=== PATIENT | male | born 1955 | race American Indian/Alaskan Native ===

== ENCOUNTER 2019-02-19 11:48 | Emergency (ER) | payer MEDICAID ==
[2019-02-19 13:20] VITALS: BP 129/83
--- NOTE | 2019-02-19 14:38 | Emergency Department Report ---
Blank Doc - Documentation Documentation: 63-year-old male that presents with URI symptoms/ This initial assessment/diagnostic orders/clinical plan/treatment(s) is/are subject to change based on patient's health status, clinical progression and re- assessment by fellow clinical providers in the ED. Further treatment and workup at subsequent clinical providers discretion. Patient/guardians urged not to elope from the ED as their condition may be serious if not clinically assessed and managed. Initial orders include: 1- Patient sent to [facility] for further evaluation and treatment 2- cxr
--- NOTE | 2019-02-19 15:20 | XRay Report ---
CHEST 2 VIEWS INDICATION: cough. COMPARISON: None. FINDINGS: Support devices: None. Heart: Within normal limits. Lungs/Pleura: No acute air space or interstitial disease. No significant pleural effusion. IMPRESSION: No acute findings. Signer Name: Ayo Kirby MD Signed: 02/19/2019 3:15 PM Workstation Name: [id number]
== END 2019-02-19 16:15 | disposition left against medical advice (07) ==
LOC: ED 11:48
DX: R51 Headache (principal); Z53.21 Procedure and treatment not carried out due to patient leaving prior to being seen by health care provider
CPT/HCPCS: 71046